=== PATIENT | female | born 1975 | race Caucasian/White ===

== ENCOUNTER 2022-11-02 07:16 | Day surgery (SDC) | payer BC ==
[~2022-11-02 07:16] MED LIST: Lactated Ringers 1,000 ML IV SCH; Sodium Chloride 0.9% 10 ML Syringe FLUSH PRN; Sodium Chloride 0.9% 2.5 ML Syringe FLUSH PRN; Sodium Chloride 0.9% 20 ML SDV IV PRN
[2022-11-02] MEDS ORDERED: Propofol 200 MG/20 ML SDV ONE ×2 (07:34→08:43)
[2022-11-02] MEDS ORDERED: Midazolam 1 MG/ML 2 ML SDV ONE (07:35)
[2022-11-02] MEDS ORDERED: fentaNYL 100 MCG/2 ML SDV ONE (07:35)
[2022-11-02 09:38] VITALS: BP 120/76; PULSE 62
== END 2022-11-02 09:55 | disposition home or self-care (01) ==
LOC: MW.SDS 07:16
PROVIDERS: ATTEND Surgery
DX: Z12.11 Encounter for screening for malignant neoplasm of colon (principal); D12.5 Benign neoplasm of sigmoid colon; F41.9 Anxiety disorder, unspecified; Z90.89 Acquired absence of other organs; Z90.710 Acquired absence of both cervix and uterus; Z90.721 Acquired absence of ovaries, unilateral; Z98.51 Tubal ligation status; F17.290 Nicotine dependence, other tobacco product, uncomplicated; Z80.0 Family history of malignant neoplasm of digestive organs
CPT/HCPCS: 45380; J2250; J2704; J3010; J7120; 00811

== ENCOUNTER 2023-08-28 10:38 | Day surgery (SDC) | payer BC ==
[~2023-08-28 10:38] MED LIST changes: -Lactated Ringers 1,000 ML IV SCH
[2023-08-28] MEDS: Lactated Ringers 1,000 ML IV SCH (11:33)
[2023-08-28] MEDS ORDERED: Propofol 200 MG/20 ML SDV ONE (11:34)
[2023-08-28] MEDS ORDERED: Lidocaine 2% 5 ML SDV ONE (11:34)
[2023-08-28 12:23] VITALS: BP 108/55; PULSE 61
== END 2023-08-28 12:30 | disposition home or self-care (01) ==
LOC: MW.SDS 10:38
PROVIDERS: ATTEND Surgery
DX: R13.10 Dysphagia, unspecified (principal); K44.9 Diaphragmatic hernia without obstruction or gangrene; K21.9 Gastro-esophageal reflux disease without esophagitis; F41.9 Anxiety disorder, unspecified; Z87.891 Personal history of nicotine dependence
CPT/HCPCS: 43239; J2704; J7120; 00731; J3490